=== PATIENT | male | born 2005 | race Two or more races ===

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

== ENCOUNTER 2023-06-30 19:59 | Emergency (ER) | payer MEDICAID ==
[~2023-06-30] VITALS: Ht 182.9 cm; Wt 111.1 kg
[~2023-06-30 19:59] MED LIST: HYDR-3682 PO
[2023-06-30 20:45] VITALS: TEMP 98.4
[2023-06-30 20:54] LABS: Urine Bacteria NONE SEEN /hpf (None Seen); Urine Blood Negative /uL (Negative); Urine Clarity Clear (Clear); Urine Color Yellow (Yellow); Urine Protein, UAD TRACE (Negative); Urine Urobilinogen Normal (Negative); Urine WBC 1 /hpf (0 - 3); Urine pH 5.5 (5.0-8.0)
[2023-06-30 20:56] LABS: Amphetamine Screen, Urine Neg (NEGATIVE); Barbiturate Scree,Urine Neg (NEGATIVE); Benzodiazephine Screen, Urine Neg (NEGATIVE); Cannabinoid Screen, Urine Neg (NEGATIVE); Cocaine Screen, Urine Neg (NEGATIVE); Opiate Scree,Urine Neg (NEGATIVE); Phencyclidine Screen, Urine Neg (NEGATIVE)
[2023-06-30 21:01] LABS: Basophils # (auto) 0 10 ^3/uL (0-0.2); Basophils % (auto) 0.3 % (0.0-2.0); Eosinophils # (auto) 0.1 10 ^3/uL (0-0.8); Eosinophils % (auto) 1.5 % (0.0-7.0); Hematocrit 45.6 % (41.0-53.0); Hemoglobin 15.5 g/dL (13.5-17.5); Lymphocytes # (auto) 1.8 10 ^3/uL (0.4-5.4); Lymphocytes % (auto) 29.4 % (10.0-50.0); Mean Corpuscular Hemoglobin 29.9 pg (28.0-32.0); Mean Corpuscular Hgb Conc. 33.9 g/dL (32.0-36.0); Mean Corpuscular Volume 88.1 fL (80.0-100.0); Monocytes # (auto) 0.5 10 ^3/uL (0-1.3); Monocytes % (auto) 8.9 % (0.0-12.0); Neutrophils # (auto) 3.6 10 ^3/uL (1.6-8.6); Neutrophils % (auto) 59.9 % (37.0-80.0); Nucleated Red Blood Cells % 0.3 %; Red Blood Cells 5.18 10^6/uL (4.5-5.90); Red Cell Distribution Width 13.4 % (11.8-14.3); White Blood Cell 6.1 10^3/uL (4.4-10.8)
[2023-06-30 21:08] VITALS: PULSE 89; RESP 29; O2SAT 98
[2023-06-30 21:20] LABS: Alanine Aminotransferase 59 U/L (7-40); Albumin 4.5 g/dL (3.2-4.8); Alkaline Phosphatase 86 U/L (46-116); Anion Gap 5 (5-15); Aspartate Aminotransferase 21 U/L (13-40); BUN/Creatinine Ratio 8.5 (10.0-20.0); Bilirubin, Total 0.7 mg/dL (0.2-1.0); Blood Alcohol 3.8 mg/dL (<10); Blood Urea Nitrogen 9 mg/dL (9-23); Calcium 9.2 mg/dL (8.7-10.4); Carbon Dioxide 26 mmol/L (20-30); Chloride 107 mmol/L (98-107); Glucose 146 mg/dL (74-106); Potassium 3.7 mmol/L (3.5-5.1); Sodium 138 mmol/L (136-145); Total Protein 6.9 g/dL (5.7-8.2)
[2023-06-30 21:21] LABS: Salicylate < 3.0 mg/dL (2.8-20.0)
[2023-06-30 23:00] VITALS: BP 100/55; PULSE 78; RESP 12; O2SAT 97
== END 2023-06-30 23:50 | disposition home or self-care (01) ==
LOC: ER 19:59
DX: R07.89 Other chest pain (principal); Z79.899 Other long term (current) drug therapy
CPT/HCPCS: 36415; 71045; 80053; 80307; 80320; 80329; 81001; 84484; 85025; 93005

== ENCOUNTER 2024-05-14 13:45 | Emergency (ER) | payer MEDICAID ==
[~2024-05-14] VITALS: Ht 182.9 cm; Wt 113.6 kg
[2024-05-14 15:52] VITALS: BP 125/85; PULSE 91; RESP 18; TEMP 98.3; O2SAT 98
[2024-05-14] MEDS ORDERED: IBUP-1455 PO (17:35)
[2024-05-14] MEDS ORDERED: FAMO20TA10 PO (17:54)
== END 2024-05-14 17:49 | disposition home or self-care (01) ==
LOC: ER 13:45
DX: M94.0 Chondrocostal junction syndrome [Tietze] (principal); M79.18 Myalgia, other site
CPT/HCPCS: 71045